=== PATIENT | male | born 2000 | race Two or more races ===

== ENCOUNTER → 2023-09-21 15:14 | Outpatient (CLI) | payer SELFPAY | LOC: RT 15:22 | PROVIDERS: Visit Provider Nurse Practitioner Family | DX: R00.2 Palpitations (principal) | CPT/HCPCS: 93225 ==

== ENCOUNTER → 2023-10-02 06:59 | Outpatient (CLI) | payer SELFPAY ==
--- NOTE | 2023-10-02 07:06 | US_ITS ---
FINAL REPORT CLINICAL HISTORY: RUQ PAIN COMPARISON: None FINDINGS: Sonographic images of the abdomen were obtained. The liver has an unremarkable appearance with normal echogenicity. There is borderline gallbladder wall thickening at 4 mm. There is no evidence of biliary ductal dilatation. The common hepatic duct measures 3 mm, which is within normal limits. The pancreas is partially obscured. The spleen size is normal. The right kidney measures 11.2 in length. The left kidney measures 10.0 in length. There is normal renal echogenicity. There is no evidence of hydronephrosis. The aorta has an unremarkable appearance. Limited images of the inferior vena cava are unremarkable. IMPRESSION: Borderline gallbladder wall thickening. Reviewed, Interpreted and Dictated by Dre Torres III, MD Transcribed by Lidia Lange Authenticated and [facility]
== END ==
LOC: RAD 07:01
PROVIDERS: PCP Nurse Practitioner Family; Visit Provider Nurse Practitioner Family
DX: R10.11 Right upper quadrant pain (principal)
CPT/HCPCS: 76700

== ENCOUNTER 2023-10-10 10:26 | Emergency (ER) | payer SELFPAY ==
[2023-10-10] VITALS (25 sets, daily range): BP systolic 94–116; BP diastolic 38–64; PULSE 49–79; RESP 15–20; TEMP 36.5–37.2; O2SAT 99–100; BMI 24.3
--- NOTE | 2023-10-10 10:40 | PC.NURSE ---
Called for medical records from PCP office
[2023-10-10 10:43] LABS: Microscopic, Urine URINE MICROSCOPIC (MICROSCOPIC)
[2023-10-10 10:56] LABS: Appearance,Urine SL CLOUDY (Clear); Bilirubin,Urine Negative (Negative); Blood, Urine Negative (Negative); Color,Urine RED (Yellow); Glucose,Urine (UA) Negative (Negative); Ketones,Urine Negative (Negative); Leukocyte Esterase,Urine Negative (Negative); Nitrate,Urine POSITIVE (Negative); Protein,Urine Negative (Negative); Urobilinogen,Urine 0.2 EU/dl (0.2)
[2023-10-10 11:02] LABS: Amorphous Sediment,Urine 1+ /lpf; Bacteria,Urine 1+ /lpf; RBC,Urine Occasional #/hpf (0-3); Squamous Epithelial Cell,Urine Occasional #/hpf (0-5); WBC,Urine Occasional #/hpf (0-3)
--- NOTE | 2023-10-10 11:21 | US_ITS ---
FINAL REPORT CLINICAL HISTORY: VOMTIING-- RUQ PAIN FINDINGS: The gallbladder shows no wall thickening, distention or stone disease. No biliary ductal dilatation is appreciated. No fluid collections are seen. Limited portions of the right liver are unremarkable. Limited portions of the right kidney are unremarkable. IMPRESSION: 1. No evidence of cholelithiasis 2. No evidence of biliary obstruction Reviewed, Interpreted and Dictated by Angel Walker MD Transcribed by Igor Nash Authenticated and [facility]
--- NOTE | 2023-10-10 11:27 | HMH.EDGENADL ---
Discharge Plan Disposition Patient Disposition: Home, Self-Care Prescriptions Prescriptions: New ondansetron HCl 4 mg tablet 4 mg PO Q8H PRN (Reason: nausea and vomiting) 5 Days Qty: 30 0RF Referrals Follow up/Referrals: Karis Couch APRN [Primary Care Provider] - See instructions Activity Restrictions/Add. Instructions Additional Instructions/Restrictions: It appears that you have an abnormality in your small bowel. I believe this is the cause of your anemia and your pain. If your pain suddenly worsens or becomes very severe, recommend returning to an ER immediately. When you return to [place] in the next couple of days, recommend that you follow-up immediately in order to establish care. I think you will require an endoscopy. Please follow-up with your primary care provider. Please return to the emergency department if you develop any new or worsening symptoms or become concerned for your health. I sent a prescription for Zofran to your pharmacy. Clinical Impressions Clinical Impression: Mass of small intestine Anemia Qualifiers: Anemia type: other cause Abdominal pain Qualifiers: Abdominal location: generalized Qualified Code(s): R10.84 - Generalized abdominal pain Instructions Patient Instructions: DI for Acute Abdominal Pain Discharge ED Provider: Rojelio Noguera General Adult HPI <Tal Nolasco MD - Last Filed: 10/10/23 17:13> General Chief complaint: Abdominal Pain Stated complaint: abd pain Time Seen by Provider: 10/10/23 10:35 Mode of Arrival: Ambulatory Source of Information: Patient Limitations: Language Barrier Description of Symptoms (Recalled from ER Triage Doc. by RN): Patient reported to MD that he has been having right upper quadrant pain that has been ongoing. Also complains of vomiting after meals. States he had an ultrasound and it showed some gallbladder problems. Patient reports that he is going back to [place] on Monday and wanted to get this checked out before he leaves. History of Present Illness HPI narrative: The patient presents with a chief complaint of abdominal pain that began three months ago and has recently increased in intensity. No burning sensation during urination is reported, and the patient has no history of chronic illnesses or daily medications. The patient notes that symptoms worsen upon eating and drinking, and currently, any type of food exacerbates the symptoms. Diarrhea is not reported, but the patient has experienced chills. No fever or blood in vomit is reported. The pain is localized to the right side of the abdomen. Describing the symptoms as constant, the primary issues are pain and nausea. The nausea is associated with the pain, and there is no reported chest pain or pain during urination. The patient has a history of a previous hospital visit and is scheduled for another visit next week. Related Data Previous Rx's Medication Instructions Recorded ondansetron HCl 4 mg tablet 4 mg PO Q8H PRN nausea and 10/10/23 vomiting 5 days #30 tabs Allergies Allergy/AdvReac Type Severity Reaction Status Date / Time No Known Allergies Allergy Verified 10/10/23 11:26 [facility] <Tal Nolasco MD - Last Filed: 10/10/23 17:13> [facility] Disclaimer: The information contained in this section may have been updated after the patient was seen, as this information can be updated by other users. Social History (Updated 10/10/23 @ 17:13 by Tal Nolasco MD) Smoking Status: Never smoker alcohol intake: never current occupational status: employed Travel in the last 8 weeks: Outside the [facility] <Tal Nolasco MD - Last Filed: 10/10/23 17:13> ROS Obtained: Yes Systems reviewed as appropriate & no additional complaints except as documented As per HPI Physical Exam <Tal Nolasco MD - Last Filed: 10/10/23 17:13> General General appearance: alert and in no apparent distress Head Head exam: atraumatic and normocephalic Eye Eye exa
[2023-10-10 11:53] LABS: Chloride 105 mmol/L (98-107); Sodium 135 mmol/L (136-145)
[2023-10-10 11:56] LABS: Alanine Aminotransferase 20 U/L (12-78); Albumin Level 3.6 g/dl (3.5-5.0); Albumin/Globulin Ratio 1.4 (1.1-1.8); Alkaline Phosphatase 70 U/L (38-126); Anion Gap 6.7 mEq/L (5-15); Aspartate Amino Transferase 27 U/L (17-59); Bilirubin,Total 0.3 mg/dl (0.2-1.3); Blood Urea Nitrogen 8 mg/dl (9-20); Carbon Dioxide 27 mmol/L (22.0-30.0); Creatinine Clearance Estimated 171 mL/min (50-200); Estimated Glomerular Filt Rate 142 ml/min (>60); GFR (African American) 172 ML/MIN (>60); Globulin 2.6 g/dL (1.3-3.2); Potassium 3.7 mmoL/L (3.5-5.1); Total Protein,Serum 6.2 g/dl (6.3-8.2)
--- NOTE | 2023-10-10 11:56 | PC.NURSE ---
RETURNED FROM US
[2023-10-10 11:57] LABS: Calcium 8.1 mg/dl (8.4-10.2); Glucose 120 mg/dl (74-100)
[2023-10-10 11:59] LABS: Basophils % 0.1 % (0.1-2.0); Eosinophils % 0.3 % (0.1-12.0); Hematocrit 22.3 % (42.0-52.0); Lymphocytes # 0.6 K/mm3 (0.7-4.5); Lymphocytes % 7.4 % (10-50); Mean Corpuscular HGB Conc 29.2 g/dL (31.8-35.4); Mean Corpuscular Volume 68.5 fl (80-94); Mean Platelet Volume 7.2 fl (7.4-10.4); Monocytes # 0.4 K/mm3 (0.1-1.0); Monocytes % 4.7 % (1.7-9.3); Neutrophils % 87.6 % (37.0-80.0); Platelet Count 600 K/mm3 (142-424); Red Blood Count 3.25 M/mm3 (4.60-6.20)
[2023-10-10 12:02] LABS: Hemoglobin 6.5 g/dL (14.1-18.0)
[2023-10-10 12:03] LABS: MANUAL DIFFERENTIAL MANUAL DIFFERENTIAL (MANUAL DIFF)
--- NOTE | 2023-10-10 12:03 | PC.NURSE ---
1201 CRITICAL LABS RECEIVED FROM JOHNATHAN IN LAB [facility] 6.04/03.3. PT NAME AND R/V 1202 DR KERN NOTIFIED. NO NEW ORDERS AT THIS TIME
--- NOTE | 2023-10-10 12:09 | CT_ITS ---
FINAL REPORT TECHNIQUE: After the administration of intravenous contrast, axial images were obtained through the abdomen and pelvis by computed tomography. This study was performed with technique to keep radiation doses as low as reasonably achievable, (ALARA). Individualized dose reduction techniques using automated exposure control or adjustment of the MA and/or KV according to the patient's size were employed. CLINICAL HISTORY: .ABD PAIN, ANEMIA FINDINGS: Abdomen: The lung bases are clear. Gallbladder is normal. There is trace ascites along the inferior liver. The spleen is unremarkable. The adrenals are normal. The pancreas is unremarkable. The kidneys enhance appropriately. The aorta is normal in caliber. There is no free fluid or adenopathy. There is a masslike soft tissue density structure in the left lower quadrant most suspicious of intussusception involving the jejunum. This is more prominent than physiologic intussusception. Underlying mass as a lead point for intussusception not excluded. Pelvis: The appendix is is normal. The urinary bladder is distended. There is trace free fluid in the left pelvis. IMPRESSION: Prominent intussusception of the jejunum in the left upper quadrant, greater than physiologic. Consider capsule enteroscopy or small bowel follow-through. Scattered, trace pelvic free fluid of uncertain significance Reviewed, Interpreted and Dictated by Angel Walker MD Transcribed by Lyssa Ovalle Authenticated and [facility]
[2023-10-10 12:45] LABS: Hypochromasia 2+; Lymphocytes % 11 % (10-50); Monocytes % 4 % (2-9); Neutrophils % 85 % (42-76); Platelet Estimate Marked Increase; Total Cells Counted 100
--- NOTE | 2023-10-10 13:57 | PC.NURSE ---
Prelim CT reads given to Dr. Nolasco
--- NOTE | 2023-10-10 15:12 | PC.NURSE ---
placed call to for transfer, face sheet faxed and Dr Nolasco on with at this time.
--- NOTE | 2023-10-10 17:52 | PC.NURSE ---
lab called advised blood was ready for pt
--- NOTE | 2023-10-10 18:34 | PC.NURSE ---
@ 1815 pre-blood vitals obtained. Pt's c/o abdominal pain after eating. Dr. Noguera ordered pain medication. @ 1820 Unit# [id number] picked up from lab. @1830 began to administer unit to pt, verified with Jaun Olivarez RN at bedside.
--- NOTE | 2023-10-10 18:50 | PC.WOUNDNOTE ---
Pt is tolerating the blood administration well. Call light at bedside and pt understands to use if needed. Will round on blood transfusion in 10 min.
== END 2023-10-10 21:51 | disposition home or self-care (01) ==
PROVIDERS: Emergency Medicine; Emergency Provider Emergency Medicine; PCP Nurse Practitioner Family
DX: D64.9 Anemia, unspecified (principal); K56.1 Intussusception; D37.2 Neoplasm of uncertain behavior of small intestine; R10.11 Right upper quadrant pain; R11.0 Nausea
CPT/HCPCS: 36430; 74177; 76705; 80053; 81001; 85007; 85025; 86850; 96374; 96375; 99285; J2405; P9016; Q9967